=== PATIENT | female | born 1940 | race Caucasian/White ===

== ENCOUNTER 2022-11-17 16:19 | Emergency (ER) | payer MEDICARE, MEDICAID ==
[2022-11-17] MEDS ORDERED: ONDANSETRON 4 MG/2 ML (SDV) Z0FRAN IVP ONE (16:45)
[2022-11-17] MEDS ORDERED: fentaNYL INJECTION 100 MCG/2 ML VIAL IVP ONE ×2 (16:45→17:30)
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
[2022-11-17] MEDS ORDERED: Tetanus/Diphtheria/Pertussis (Acell) ADULT Vaccine 0.5 ML IM ONE (17:30)
[2022-11-17] MEDS ORDERED: KETOROLAC 30 MG/ML VIAL IVP ONE (17:30)
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
[2022-11-17 18:51] VITALS: BP 135/61
== END 2022-11-17 20:37 | disposition home or self-care (01) ==
LOC: ER 16:22
DX: S01.01XA Laceration without foreign body of scalp, initial encounter (principal); Z86.59 Personal history of other mental and behavioral disorders; Z23 Encounter for immunization; W18.30XA Fall on same level, unspecified, initial encounter
CPT/HCPCS: 70450; 72125; 90471; 90715; 96374; 96375; 96376